=== PATIENT | female | born 1980 | race Caucasian/White ===

== ENCOUNTER 2016-10-27 10:24 | Emergency (ER) | payer SELFPAY ==
[~2016-10-27] VITALS: Ht 165.1 cm; Wt 95.9 kg
[~2016-10-27 10:24] MED LIST: LEVO500T6 PO; LISI-420 PO; METO25TE2 PO
[2016-10-27 10:44] VITALS: BP 110/74
--- NOTE | 2016-10-27 10:54 | NUR ---
Patient ambulated to [facility] to be evaluated as fast track by Dr. Duque. RN evaluating patient at bedside.
--- NOTE | 2016-10-27 10:55 | NUR ---
Dr. Duque evaluating patient in [facility].
[2016-10-27 11:26] VITALS: BP 110/74
--- NOTE | 2016-10-27 11:27 | NUR ---
Patient discharged with v/s stable. Written and verbal after care instructions given and explained. Patient alert, oriented and verbalized understanding of instructions. Ambulatory with steady gait. All questions addressed prior to discharge. ID band removed. Patient advised to follow up with PMD. Rx of TYLENOL, Z PACK, COUGH SYRUP given. Patient educated on indication of medication including possible reaction and side effects. Opportunity to ask questions provided and answered.
== END 2016-10-27 11:08 | disposition home or self-care (01) ==
LOC: MED 10:24
DX: J20.9 Acute bronchitis, unspecified (principal); J02.9 Acute pharyngitis, unspecified; I10 Essential (primary) hypertension
CPT/HCPCS: 99281